=== PATIENT | male | born 1985 | race Caucasian/White ===

== ENCOUNTER 2019-03-26 03:36 | Emergency (ER) | payer SELFPAY ==
[~2019-03-26] VITALS: Ht 170.2 cm; Wt 82.1 kg
[2019-03-26 03:42] VITALS: BP 147/62; PULSE 104; RESP 20; Ht 170.2 cm; Wt 82.1 kg
== END 2019-03-26 04:55 | disposition left against medical advice (07) ==
LOC: FTE 03:36
DX: Z53.21 Procedure and treatment not carried out due to patient leaving prior to being seen by health care provider (principal)